=== PATIENT | female | born 1975 | race American Indian/Alaskan Native ===

== ENCOUNTER 2016-10-02 19:48 | Emergency (ER) | payer OTHER ==
[~2016-10-02] VITALS: Ht 162.6 cm; Wt 72.7 kg
[2016-10-02 19:53] VITALS: BP 142/95
[2016-10-02] MEDS ORDERED: LIDOCAINE 1%, 10ML INFIL ONE (20:30)
[2016-10-02] MEDS ORDERED: HYDROcodone/APAP 5/325 TABLET PO ONE (21:30)
[2016-10-02] MEDS ORDERED: HYDROcodone/APAP 5/325 TABLET ONE (21:31)
[2016-10-02] MEDS ORDERED: BACITRACIN ZINC OINT 500U/GM, 0.9 GM ONE (22:06)
== END 2016-10-02 22:11 | disposition home or self-care (01) ==
LOC: ED 22:00
DX: S16.1XXA Strain of muscle, fascia and tendon at neck level, initial encounter (principal); S29.012A Strain of muscle and tendon of back wall of thorax, initial encounter; S00.01XA Abrasion of scalp, initial encounter; G89.11 Acute pain due to trauma; R68.84 Jaw pain; W18.09XA Striking against other object with subsequent fall, initial encounter; Y93.89 Activity, other specified; Y92.89 Other specified places as the place of occurrence of the external cause; Y99.8 Other external cause status
CPT/HCPCS: 70486; 72125; 72128; 99284